=== PATIENT | male | born 1975 | race Two or more races ===

== ENCOUNTER 2016-08-22 10:04 | Emergency (ER) | payer MEDICAID ==
[~2016-08-22] VITALS: Ht 170.2 cm; Wt 68.5 kg
[2016-08-22] MEDS ORDERED: IV SET PRIMARY PUMP SET 1 EA INFUS.SET MC ONE (10:17)
[2016-08-22] MEDS ORDERED: ONDANSETRON HCL/PF 4 MG/2 ML VIAL ONE (10:17)
[2016-08-22] MEDS ORDERED: IV NS 0.9% 1,000 ML ONE (10:17)
[2016-08-22 10:25] LABS: BASOPHILS # (AUTO) 0.1 /CMM (0.0-0.2); BASOPHILS % (AUTO) 1.4 % (0.0-2.0); DIFF TOTAL % 100 %; EOSINOPHILS # (AUTO) 0.1 /CMM (0.0-0.7); EOSINOPHILS % (AUTO) 1.4 % (0.0-6.0); HEMATOCRIT 42 % (39-51); HEMOGLOBIN 13.9 g/dL (13.5-17.5); LYMPHOCYTES # (AUTO) 1.6 /CMM (0.8-4.8); LYMPHOCYTES % (AUTO) 21.4 % (20.0-44.0); MEAN CORPUSCULAR HEMOGLOBIN 34 PG (26.0-33.0); MEAN CORPUSCULAR HGB CONC 33 g/dl (31.0-36.0); MEAN CORPUSCULAR VOLUME 101 fL (80-96); MONOCYTES # (AUTO) 0.7 /CMM (0.1-1.30); MONOCYTES % (AUTO) 9.9 % (2.0-12.0); NEUTROPHILS # (AUTO) 4.9 /CMM (1.8-8.9); NEUTROPHILS % (AUTO) 65.9 % (43.0-81.0); PLATELET COUNT (AUTO) 96 /CMM (150-450); RED BLOOD CELL COUNT(AUTO) 4.14 MIL/uL (4.5-6.0); WHITE BLOOD COUNT (AUTO) 7.5 K/uL (4.3-11.0)
[2016-08-22] MEDS ORDERED: ONDANSETRON HCL/PF 4 MG/2 ML VIAL IVP ONE (10:30)
[2016-08-22] MEDS ORDERED: Thiamine 100 MG in IV D5W 50 ML IV SCH (10:30)
[2016-08-22] MEDS ORDERED: IV NS 0.9% 1,000 ML BAG IV ONE (10:30)
[2016-08-22 10:33] LABS: ANION GAP 22 (5-14); CALCIUM, SERUM 9.2 mg/dL (8.5-10.1); CARBON DIOXIDE 20 mmol/L (21-32); CHLORIDE 96 mmol/L (98-107); CREATININE 1.1 mg/dL (0.6-1.3); GFR 73 mL/min (>60); GLUCOSE 203 mg/dL (74-106); POTASSIUM 4.1 mmol/L (3.5-5.1); SODIUM SERUM 134 mmol/L (136-145); UREA NITROGEN, BLOOD 4 mg/dL (7-18)
[2016-08-22 10:39] LABS: ALANINE AMINOTRANSFERASE 47 U/L (12-78); ALBUMIN 4.3 g/dL (3.4-5.0); ASPARTATE AMINOTRANSFERASE 87 U/L (15-37); BILIRUBIN,DIRECT 0.3 mg/dL (0.0-0.2); INDIRECT BILIRUBIN 0.7 mg/dL (0.0-1.1); TOTAL PROTEIN, SERUM 8.6 g/dL (6.4-8.2)
[2016-08-22 10:40] LABS: ACETAMINOPHEN 0 ug/ml (10-30); SALICYLATE 0.7 mg/dL (2.8-20.0)
[2016-08-22 10:46] LABS: INR 1.07 (0.87-1.13); PROTHROMBIN TIME 11.6 SECS (9.5-12.7)
[2016-08-22 10:53] LABS: EOSINOPHILS % (MANUAL) 1 % (0-4); LYMPHOCYTES % (MANUAL) 24 % (16-48)
[2016-08-22 10:54] LABS: PLATELET ESTIMATE DECRE
[2016-08-22] MEDS ORDERED: Magnesium 1 GM/2 ML VIAL ONE (11:16)
[2016-08-22] MEDS ORDERED: Magnesium 1GM/D5W 100ML PREMIX 200 ML IV ONE (11:18)
[2016-08-22 11:20] LABS: CANNABINOID, URINE NEGATIVE (NEGATIVE); PHENCYCLIDINE SCREEN,URINE NEGATIVE (NEGATIVE)
[2016-08-22] MEDS ORDERED: Magnesium 1 GM/2 ML VIAL IV ONE (11:30)
[2016-08-22] MEDS ORDERED: DIAZEPAM 5 MG TABLET PO ONE (12:30)
[2016-08-22] MEDS ORDERED: DIAZEPAM 5 MG TABLET ONE (12:49)
[2016-08-22 13:32] VITALS: BP 133/79
== END 2016-08-22 13:33 | disposition home or self-care (01) ==
LOC: ER 10:07
DX: S09.90XA Unspecified injury of head, initial encounter (principal); R55 Syncope and collapse; F10.239 Alcohol dependence with withdrawal, unspecified; W01.198A Fall on same level from slipping, tripping and stumbling with subsequent striking against other object, initial encounter; Y93.89 Activity, other specified; Y92.89 Other specified places as the place of occurrence of the external cause; Y99.9 Unspecified external cause status
CPT/HCPCS: 36415; 70450; 80048; 80076; 80305; 80329; 83735; 85025; 85730; 96365; 96375; 99285; A4606; G0480 ×2; J2405; J3475; J7030; Z7610; G6039-TC; J3411; J7060